=== PATIENT | male | born 2000 | race Caucasian/White ===

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

== ENCOUNTER 2022-01-04 11:20 | Outpatient (REF) | payer BC, MEDICAID, SELFPAY ==
[2022-01-08 07:21] LABS: Chlamydia Result Negative (Negative); GC Result Negative (Negative)
== END 2022-01-04 11:21 | disposition home or self-care (01) ==
LOC: LBN 11:20
PROVIDERS: PCP Pediatrics; Referring Provider Pediatrics; Visit Provider Pediatrics
DX: Z11.3 Encounter for screening for infections with a predominantly sexual mode of transmission (principal)
CPT/HCPCS: 87491; 87591